=== PATIENT | male | born 1975 | race Caucasian/White ===

== ENCOUNTER → 2018-07-16 | Outpatient (CLI) | payer OTHER ==
[~2018-07-16] MED LIST: REGADENOSON 0.4 MG/5 ML SYRINGE IV ONE
--- NOTE | 2018-07-16 10:47 | P.STRESS ---
- Stress Test Note Stress Test Results/Findings: Exam Performed: NM stress lexiscan cardiolite Exam Date: 07/16/18 Reason for Exam: htn Height: 5 ft 6 in Weight: 108.862 kg Protocol: lexiscan Stage: na Duration of Exercise: na Resting Heart Rate: 98 Resting Blood Pressure: 151/76 Maximum Achieved Heart Rate: 107 Maximum Achieved Blood Pressure: 151/76 85% PMHR: na 100% PMHR: na METS: na Technologist Comment: Stress Test Results/Findings: This is a 42-year-old gentleman with history of hypertension, hypercholesterolemia and smoking being evaluated for cardiac status. Stress data: Baseline EKG showed sinus rhythm with a normal VT interval and QRS duration. Blood pressure at rest is 150/76 with pulse rate of 98. A standard dose of Lexiscan was infused. EKGs taken during and after infusion did not reveal any changes of ischemia. Final impression: #1. Negative Lexiscan stress test #2. Report on the nuclear images to be given by the radiologist.
--- NOTE | 2018-07-16 12:32 | NM ---
EXAMINATION TYPE: NM stress cardiolite complete DATE OF EXAM: 07/16/2018 COMPARISON: NONE HISTORY: Chest pain TECHNIQUE: After the intravenous administration of 10.18 mCi Tc 99m Sestamibi - Rest images obtained 50 minutes post injection. The patient exercised using a SANJUANA protocol and 1 minute prior to peak exercise was injected with 25.8 mCi Tc 99m Sestamibi - Stress images obtained 33 minutes post inject ion. FINDINGS: Targeted heart rate was achieved during performance of the study. Review of stress and rest SPECT jeny ges demonstrates tiny focal area of perfusion defect involving the anterior apical myocardium. Gated analysis shows normal wall motion with an estimated left ventricular ejection fraction of 52 %. IMPRESSION: 1. Tiny focal perfusion defect anteroapical myocardium felt to BE most likely artifactual. Correlate clinically to exclude a tiny stress-induced area of reversible ischemia.
--- NOTE | 2018-07-18 12:43 | EST ---
Stress Test Results/Findings: Exam Performed: NM stress lexiscan cardiolite Exam Date: 07/16/18 Reason for Exam: htn Height: 5 ft 6 in Weight: 108.862 kg Protocol: lexiscan Stage: na Duration of Exercise: na Resting Heart Rate: 98 Resting Blood Pressure: 151/76 Maximum Achieved Heart Rate: 107 Maximum Achieved Blood Pressure: 151/76 85% PMHR: na 100% PMHR: na METS: na Technologist Comment: Stress Test Results/Findings: This is a 42-year-old gentleman with history of hypertension, hypercholesterolemia and smoking being evaluated for cardiac status. Stress data: Baseline EKG showed sinus rhythm with a normal MI interval and QRS duration. Blood pressure at rest is 150/76 with pulse rate of 98. A standard dose of Lexiscan was infused. EKGs taken during and after infusion did not reveal any changes of ischemia. Final impression: #1. Negative Lexiscan stress test #2. Report on the nuclear images to be given by the radiologist. MEJIA
== END | disposition home or self-care (01) ==
LOC: RADNMMAIN 08:17
PROVIDERS: ATTEND Family Medicine
DX: E78.00 Pure hypercholesterolemia, unspecified (principal); I10 Essential (primary) hypertension
CPT/HCPCS: 93017; 78452; A9500

== ENCOUNTER → 2018-07-22 | Outpatient (CLI) | payer OTHER ==
--- NOTE | 2018-07-22 18:37 | ECHOF ---
Referral Reason:I10 essential hypertention MEASUREMENTS -------- HEIGHT: 167.6 cm WEIGHT: 108.9 kg BP: RVIDd: 2.7 cm (< 3.3) IVSd: 1.2 cm (0.6 - 1.1) LVIDd: 3.5 cm (3.9 - 5.3) LVPWd: 1.3 cm (0.6 - 1.1) IVSs: 1.5 cm LVIDs: 2.2 cm LVPWs: 1.2 cm LAESV Index (A-L): 15.32 ml/m Ao Diam: 3.1 cm (2.0 - 3.7) AV Cusp: 2.3 cm (1.5 - 2.6) LA Diam: 3.5 cm (2.7 - 3.8) MV EXCURSION: 20.651 mm (> 18.000) MV EF SLOPE: 120 mm/s (70 - 150) EPSS: 0.4 cm MV E Daniel: 0.62 m/s MV DecT: 476 ms MV A Daniel: 0.61 m/s MV E/A Ratio: 1.02 RAP: 5.00 mmHg RVSP: 17.79 mmHg FINDINGS -------- Sinus rhythm. This was a technically adequate study. The left ventricular size is normal. There is mild concentric left ventricular hypertrophy. Overa ll left ventricular systolic function is normal with, an EF between 55 - 60 %. The right ventricle is normal in size and function. Normal LA size by volume 22+/-6 ml/m2. The right atrium is normal in size. The aortic valve is trileaflet, and appears structurally normal. No aortic stenosis or regurgitation. The mitral valve is normal. Mild mitral regurgitation is present. Trace tricuspid regurgitation present. Right ventricular systolic pressure is normal at < 35 mmHg. Trace/mild (physiologic) pulmonic regurgitation. The aortic root size is normal. Normal inferior vena cava with normal inspiratory collapse consistent with estimated right atrial pre ssure of 5 mmHg. There is no pericardial effusion. CONCLUSIONS -------- 1. Sinus rhythm. 2. This was a technically adequate study. 3. The left ventricular size is normal. 4. There is mild concentric left ventricular hypertrophy. 5. Overall left ventricular systolic function is normal with, an EF between 55 - 60 %. 6. Normal LA size by volume 22+/-6 ml/m2. 7. The aortic valve is trileaflet, and appears structurally normal. No aortic stenosis or regurgitati on. 8. Mild mitral regurgitation is present. 9. Trace tricuspid regurgitation present. 10. Right ventricular systolic pressure is normal at < 35 mmHg. 11. Trace/mild (physiologic) pulmonic regurgitation. 12. The aortic root size is normal. 13. There is no pericardial effusion. SENIOR BOILER OPERATOR: Remington Erickson RDCS
== END | disposition home or self-care (01) ==
LOC: RADECHMAIN 12:46
PROVIDERS: ATTEND Family Medicine
DX: I11.0 Hypertensive heart disease with heart failure (principal); I34.0 Nonrheumatic mitral (valve) insufficiency
CPT/HCPCS: 93306

== ENCOUNTER 2018-12-27 15:37 | Emergency (ER) | payer OTHER ==
[2018-12-27] MEDS ORDERED: ACETAMINOPHEN TAB 500 MG TAB PO STA (16:20)
[2018-12-27] MEDS ORDERED: IBUPROFEN 600 MG TAB PO STA (16:20)
--- NOTE | 2018-12-27 16:26 | ED ---
General Adult HPI - General Chief complaint: Dizziness Stated complaint: sick Time Seen by Provider: 12/27/18 15:55 Source: patient, RN notes reviewed Mode of arrival: ambulatory Limitations: no limitations - History of Present Illness Initial comments: This a 43-year-old male presents emergency Department with 2 day history of body aches and fever. Patient states she's also been very congested and has been coughing. Patient states is difficult to breathe through his nose. He is fine when he breathes through his mouth. Patient denies any shortness of breath. Patient denies getting a flu shot. Patient denies any abdominal pain patient denies chest pain but said palpitations. Patient denies any vomiting or diarrhea. Patient denies any recent injury. Patient does not know if he is been exposed to anyone with the flu. - Related Data Previous Rx's Medication Instructions Recorded Oseltamivir [Tamiflu] 75 mg PO Q12HR #10 cap 12/27/18 Allergies Allergy/AdvReac Type Severity Reaction Status Date / Time No Known Allergies Allergy Verified 12/27/18 16:24 Review of Systems ROS Statement: Those systems with pertinent positive or pertinent negative responses have been documented in the HPI. ROS Other: All systems not noted in ROS Statement are negative. Past Medical History Past Medical History: Hypertension History of Any Multi-Drug Resistant Organisms: None Reported Past Surgical History: Hernia Repair Past Psychological History: No Psychological Hx Reported Smoking Status: Current every day smoker Past Alcohol Use History: Occasional Past Drug Use History: None Reported General Exam - General Exam Comments Initial Comments: GENERAL: Patient is well-developed and well-nourished. Patient is nontoxic and well-hydrated and is in mild distress. Patient is 103.3 fever ENT: Neck is soft and supple. No significant lymphadenopathy is noted. Oropharynx is clear. Moist mucous membranes. Neck has full range of motion without eliciting any pain. EYES: The sclera were anicteric and conjunctiva were pink and moist. Extraocular movements were intact and pupils were equal round and reactive to light. Eyelids were unremarkable. PULMONARY: Unlabored respirations. Good breath sounds bilaterally. No audible rales rhonchi or wheezing was noted. CARDIOVASCULAR: There is a regular rate and rhythm without any murmurs gallops or rubs. ABDOMEN: Soft and nontender with normal bowel sounds. No palpable organomegaly was noted. There is no palpable pulsatile mass. SKIN: Skin is clear with no lesions or rashes and otherwise unremarkable. NEUROLOGIC: Patient is alert and oriented x3. Cranial nerves II through XII are grossly intact. Motor and sensory are also intact. Normal speech, volume and content. Symmetrical smile. MUSCULOSKELETAL: Normal extremities with adequate strength and full range of motion. LYMPHATICS: No significant lymphadenopathy is noted PSYCHIATRIC: Normal psychiatric evaluation. Limitations: no limitations Course Vital Signs 12/27/18 12/27/18 15:55 16:20 Temperature 100.8 F H 103.3 F H Pulse Rate 111 H Respiratory 20 Rate Blood Pressure 121/70 O2 Sat by Pulse 95 Oximetry Medical Decision Making - Medical Decision Making Chest x-ray is normal. Patient has influenza A positive for gave the patient Tamiflu. I also brought the fever down with Tylenol and Motrin. - Lab Data Lab Results 12/27/18 Range/Units 16:14 Influenza Type A RNA Detected H (Not Detectd) Influenza Type B (PCR) Not Detected (Not Detectd) Disposition Clinical Impression: Influenza A Disposition: HOME SELF-CARE Condition: Good Instructions (If sedation given, give patient instructions): Influenza (ED) Prescriptions: Oseltamivir [Tamiflu] 75 mg PO Q12HR #10 cap Is patient prescribed a controlled substance at d/c from ED?: No Referrals: Quintin Johnson Jr, DO [Primary Care Provider] - 1-2 days Time of Disposition: 16:53
--- NOTE | 2018-12-27 16:39 | XR ---
EXAMINATION: XR chest 2V DATE AND TIME: 12/27/2018 4:27 PM CLINICAL INDICATION: PHH; Difficulty breathing TECHNIQUE: Departmental protocol COMPARISON: 10/09/2014 FINDINGS: The lungs are clear. The pleural spaces are negative. The cardiac silhouette is not enlarged. The remainder of the mediastinal silhouette is unremarkable. The skeletal structures and soft tissues are negative for acute findings. IMPRESSION: NO ACUTE PROCESS.
[2018-12-27] MEDS ORDERED: OSELTAMIVIR 75 MG CAP PO STA (16:42)
[2018-12-27 16:58] VITALS: BP 147/86; PULSE 112; RESP 18; TEMP 100.5
== END 2018-12-27 17:00 | disposition home or self-care (01) ==
LOC: EC 15:37
DX: J10.1 Influenza due to other identified influenza virus with other respiratory manifestations (principal); R42 Dizziness and giddiness; F17.200 Nicotine dependence, unspecified, uncomplicated
CPT/HCPCS: 71046; 87502; 99284